=== PATIENT | female | born 1955 ===

== ENCOUNTER 2017-05-23 19:46 | Emergency (ER) | payer OTHER ==
[2017-05-23 20:07] VITALS: O2SAT 100
[2017-05-23] MEDS ORDERED: Insulin Regular 100 units/ml IV STA (20:27)
[2017-05-23] MEDS ORDERED: Albuterol-Ipratrop 3 mg / 0.5 (3 ml) UD INH STA (20:29)
[2017-05-23] MEDS ORDERED: Sodium Chloride 0.9% 1,000 ML IV SCH (20:30)
--- NOTE | 2017-05-23 20:41 | ED PDOC ---
Hyperglycemia/Hypoglycemia Time Seen by Provider: 05/23/17 20:14 Chief Complaint (Nursing): High Blood Sugar Chief Complaint (Provider): High blood sugar History Per: Patient History/Exam Limitations: no limitations Onset/Duration Of Symptoms: Days (1) Associated Infectious Symptoms: Cough : The patient does not have any of the infectious symptoms listed except for those marked. Additional Complaint(s): Patient is a 62 y/o female with a past medical history of non-insulin dependent diabetes presenting to the emergency department for fatigue that started this morning with associated polyuria and polydipsia ongoing for one week. Reports not feeling well this morning and notes that when she came home after returning from work, she had difficulty going upstairs to her fourth floor apartment. Also reports that her blood sugar level is 390 mg/dL, taken at home. Also complains of chest pain, chills, and a dry cough for the last three months. Denies fever or other complaints. PCP: Dr. Jayne Davis Past Medical History Reviewed: Historical Data, Nursing Documentation, Vital Signs Vital Signs: Last Vital Signs Temp 97.2 F L 05/23/17 20:03 Pulse 67 05/23/17 20:03 Resp 16 05/23/17 20:03 BP 193/79 H 05/23/17 20:03 Pulse Ox 100 05/23/17 20:03 - Medical History PMH: Diabetes - Family History Family History: States: Unknown Family Hx - Home Medications Home Medications: Ambulatory Orders Medication Instructions Recorded Albuterol HFA [Ventolin HFA 90 2 puff IH [id number] #1 inhaler 05/23/17 mcg/actuation (8 g)] Cyclobenzaprine [Cyclobenzaprine 10 mg PO BID #15 tab 05/23/17 HCl] predniSONE [predniSONE Tab] 20 mg PO DAILY 3 Days 05/23/17 - Allergies Allergies/Adverse Reactions: Allergies Allergy/AdvReac Type Severity Reaction Status Date / Time aspirin Allergy RASH Verified 05/23/17 20:03 Review of Systems ROS Statement: Except As Marked, All Systems Reviewed And Found Negative Constitutional: Positive for: Chills, Other (fatigue, polydipsia). Negative for : Fever Cardiovascular: Positive for: Chest Pain Respiratory: Positive for: Cough (dry) Genitourinary Female: Positive for: Other (polyuria) Physical Exam - Reviewed Nursing Documentation Reviewed: Yes Vital Signs Reviewed: Yes - Physical Exam Appears: Positive for: Non-toxic, No Acute Distress (Tired with active cough) Head Exam: Positive for: ATRAUMATIC, NORMAL INSPECTION, NORMOCEPHALIC Skin: Positive for: Normal Color, Warm, Dry Eye Exam: Positive for: Normal appearance Neck: Positive for: Normal, Painless ROM, Supple Cardiovascular/Chest: Positive for: Regular Rate, Rhythm. Negative for: Murmur Respiratory: Positive for: Normal Breath Sounds. Negative for: Accessory Muscle Use, Respiratory Distress Gastrointestinal/Abdominal: Positive for: Normal Exam, Soft. Negative for: Tenderness Extremity: Positive for: Normal ROM. Negative for: Pedal Edema Neurologic/Psych: Positive for: Alert, Oriented (x3) - Laboratory Results Result Diagrams: 05/23/17 21:05 05/23/17 21:05 - ECG O2 Sat by Pulse Oximetry: 100 (RA) Pulse Ox Interpretation: Normal Medical Decision Making Medical Decision Making: Time: 20:06 Initial impression: Hyperglycemia. Rule out diabetic ketoacidosis. Initial plan: Labs EKG Chest X-ray Duoneb 3 ml INH HumuLIN 10 units INH Toradol 15 mg IVP Normal Saline 1 L IV Public Works Commissioner continued Peak flow assessment Urinalysis Reevaluation 22:20 Upon provider evaluation patient is feeling better, is medically stable, and requires no further treatment in the ED at this time. Patient will be discharged with Rx for Ventolin, Cyclobenzaprine, and Prednisone. Counseling was provided and all questions were answered regarding diagnosis and need for follow up with PCP. There is agreement to discharge plan. Return if symptoms persist or worsen. Scribe Attestation: Documented by Rafaela Burgess, acting as a scribe for Toño Hodges MD. Provider Scribe Attestation: All medical record entries made by the Scribe were at my direction and personally dictated by me. I have reviewed the chart and agree that the record accurately reflects my personal performance of the history, physical exam, medical decision making, and the department course for this patient. I have also personally directed, reviewed, and agree with the discharge instructions and disposition. Disposition - Clinical Impression Clinical Impression: Hyperglycemia - Patient ED Disposition Is Patient to be Admitted: No Counseled Patient/Family Regarding: Diagnosis, Rx Given - Disposition Referrals: Jayne Francisco MD [Medical Doctor] - Disposition: Routine/Home Disposition Time: 22:20 Condition: IMPROVED Prescriptions: Albuterol HFA [Ventolin HFA 90 mcg/actuation (8 g)] 2 puff IH [id number] #1 inhaler Cyclobenzaprine [Cyclobenzaprine HCl] 10 mg PO BID #15 tab predniSONE [predniSONE Tab] 20 mg PO DAILY 3 Days Instructions: Diabetic Hyperglycemia (ED) Forms: [employer] ([employer]), [facility] ED School/Work Excuse Print Language: URDU
[2017-05-23] MEDS ORDERED: Insulin Regular 100 units/ml ONE (20:45)
[2017-05-23] MEDS ORDERED: Albuterol-Ipratrop 3 mg / 0.5 (3 ml) UD ONE (20:45)
[2017-05-23 21:11] LABS: BASO # 0.1 K/uL (0.0-0.2); BASO % 0.5 % (0.0-2.0); EOS # 0.3 K/uL (0.0-0.7); EOS % 2.9 % (0.0-4.0); HEMATOCRIT 39.1 % (34.0-47.0); LYMPH # 3.5 K/uL (1.0-4.3); LYMPH % 30.1 % (20.0-40.0); MEAN CELL VOLUME 83.5 fl (81.0-99.0); MEAN CORPUSCULAR HGB CONC 32.3 g/dL (33.0-37.0); MEAN PLATELET VOLUME 8.6 fl (7.2-11.7); MONO # 0.6 K/uL (0.0-0.8); NEUT # 7.1 K/uL (1.8-7.0); NEUT % 61.5 % (50.0-75.0); NRBC % 0.1 % (0.0-0.0); RBC URINE 1 /hpf (0-3); RED CELL DISTRIBUTION WIDTH 14.5 % (11.5-14.5); URINE BILIRUBIN NEGATIVE (NEGATIVE); URINE BLOOD NEGATIVE (NEGATIVE); URINE COLOR STRAW (YELLOW); URINE GLUCOSE (UA) NEG (Normal); URINE KETONE NEGATIVE (NEGATIVE); URINE LEUKOCYTE ESTERASE NEG Leu/uL (Negative); URINE PROTEIN NEGATIVE (NEGATIVE); URINE UROBILINOGEN 0.2-1.0 mg/dL (0.2-1.0); WBC URINE 1 /hpf (0-5); WHITE BLOOD COUNT 11.6 K/uL (4.8-10.8)
[2017-05-23 21:15] LABS: VENOUS BLOOD GAS PCO2 48 mmHg (40-60)
[2017-05-23 21:20] LABS: BLOOD UREA NITROGEN 15 mg/dl (7-17); CALCIUM 9.8 mg/dL (8.4-10.2); CARBON DIOXIDE 27 mmol/L (22-30); CHLORIDE 97 mmol/L (98-107); GFR AFRICAN-AMERICAN > 60; GLUCOSE,RANDOM 238 mg/dL (65-105); SODIUM 136 mmol/l (132-148)
[2017-05-23 21:33] LABS: POTASSIUM 4.1 MMOL/L (3.6-5.0)
[2017-05-23 22:06] VITALS: BP 137/65; PULSE 62; RESP 15; TEMP 98
--- NOTE | 2017-05-23 22:16 | ED PDOC ---
Hyperglycemia/Hypoglycemia Chief Complaint (Nursing): High Blood Sugar : The patient does not have any of the infectious symptoms listed except for those marked. Past Medical History Vital Signs: Last Vital Signs Temp 97.2 F L 05/23/17 20:03 Pulse 67 05/23/17 20:03 Resp 16 05/23/17 20:03 BP 193/79 H 05/23/17 20:03 Pulse Ox 100 05/23/17 20:03 - Allergies Allergies/Adverse Reactions: Allergies Allergy/AdvReac Type Severity Reaction Status Date / Time aspirin Allergy RASH Verified 05/23/17 20:03 - ECG O2 Sat by Pulse Oximetry: 100 Disposition - Disposition Forms: [employer] (Korean)
--- NOTE | 2017-05-24 09:30 | RAD ---
HISTORY: Cough, chest pain. COMPARISON: 07/09/2012. TECHNIQUE: Chest PA and lateral FINDINGS: LUNGS: No active pulmonary disease. PLEURA: No significant pleural effusion identified. No pneumothorax apparent. CARDIOVASCULAR: No radiographic findings to suggest acute or significant cardiovascular disease. OSSEOUS STRUCTURES: No significant abnormalities. VISUALIZED UPPER ABDOMEN: Normal. OTHER FINDINGS: None. IMPRESSION: No active disease. No significant interval change compared to the prior examination(s).
--- NOTE | 2017-05-26 11:24 | CARD ---
APPROVED REPORT EKG Measurement Heart [id number] <Conclusion> Normal sinus rhythm Normal ECG
== END 2017-05-23 22:42 | disposition home or self-care (01) ==
LOC: H.ER 19:46
DX: E11.65 Type 2 diabetes mellitus with hyperglycemia (principal)
CPT/HCPCS: 71020; 80048; 81003; 82803; 82948; 84484; 85025; 85610; 85730; 93005; 94640; 96374; 99283; J1885; J7040

== ENCOUNTER 2018-07-03 12:32 | Inpatient (IN) | payer SELFPAY ==
[2018-07-03 14:01] LABS: BASO % 0.4 % (0.0-2.0); EOS # 0.2 K/uL (0.0-0.7); EOS % 1.8 % (0.0-4.0); HEMOGLOBIN 14.3 g/dL (12.0-16.0); LYMPH # 1.9 K/uL (1.0-4.3); LYMPH % 20.4 % (20.0-40.0); MEAN CELL VOLUME 82.9 fl (81.0-99.0); MEAN CORPUSCULAR HEMOGLOBIN 27.7 pg (27.0-31.0); MEAN CORPUSCULAR HGB CONC 33.4 g/dL (33.0-37.0); MEAN PLATELET VOLUME 8.7 fl (7.2-11.7); MONO # 0.4 K/uL (0.0-0.8); MONO % 4.7 % (0.0-10.0); NEUT # 6.8 K/uL (1.8-7.0); NEUT % 72.7 % (50.0-75.0); RBC 5.17 Mil/uL (3.80-5.20); RED CELL DISTRIBUTION WIDTH 14.8 % (11.5-14.5); WHITE BLOOD COUNT 9.3 K/uL (4.8-10.8)
[2018-07-03 14:10] LABS: INR 1.1
[2018-07-03 14:11] LABS: ALBUMIN 4.1 g/dL (3.5-5.0); ALT/SGPT 82 U/L (9-52); AST/SGOT 109 U/L (14-36); BLOOD UREA NITROGEN 13 mg/dl (7-17); CALCIUM 9.9 mg/dL (8.4-10.2); GFR NON-AFRICAN AMERICAN > 60
--- NOTE | 2018-07-03 14:44 | CT ---
Date of service: 07/03/2018 PROCEDURE: CT HEAD WITHOUT CONTRAST. HISTORY: dizziness COMPARISON: Noncontrast head CT 09/19/2013. TECHNIQUE: Axial computed tomography images were obtained through the head/brain without intravenous contrast. Radiation dose: Total exam DLP = 833.12 mGy-cm. This CT exam was performed using one or more of the following dose reduction techniques: Automated exposure control, adjustment of the mA and/or kV according to patient size, and/or use of iterative reconstruction technique. FINDINGS: HEMORRHAGE: No intracranial hemorrhage. BRAIN: Trace infrequent subcortical microangiopathy is appreciated which is not significantly changed in the interval. Normal hoang-white differentiation is preserved and the ventricular sulcal and cisternal spaces are also unremarkable. There is no mass effect. There is no suspicious extra-axial fluid collection and the midline brain anatomy appears diffusely unremarkable. VENTRICLES: Unremarkable. No hydrocephalus. CALVARIUM: Unremarkable. PARANASAL SINUSES: Unremarkable as visualized. No significant inflammatory changes. MASTOID AIR CELLS: Unremarkable as visualized. No inflammatory changes. OTHER FINDINGS: None. IMPRESSION: Stable limited age-related neuro degenerative findings as discussed above, which remain age appropriate. No interval acute findings appreciable. CT or MRI are available for follow-up if clinically warranted.
--- NOTE | 2018-07-03 14:58 | RAD ---
HISTORY: chest pain, dizziness COMPARISON: Chest x-ray performed 05/23/17 TECHNIQUE: Chest PA and lateral FINDINGS: External cardiac monitoring leads obscure evaluation of the underlying parenchyma. Examination limited by habitus. LUNGS: No focal consolidation. Please note that chest x-ray has limited sensitivity for the detection of pulmonary masses. PLEURA: No significant pleural effusion identified. No definite pneumothorax . CARDIOVASCULAR: The cardiomediastinal silhouette appears within normal limits of size. No atherosclerotic calcification present. OSSEOUS STRUCTURES: Degenerative changes of the spine. VISUALIZED UPPER ABDOMEN: Unremarkable. OTHER FINDINGS: None. IMPRESSION: No focal consolidation, significant pleural effusion, or definite pneumothorax identified.
--- NOTE | 2018-07-03 17:31 | ED PDOC ---
HPI: General Adult Time Seen by Provider: 07/03/18 13:03 Chief Complaint (Nursing): Weakness/Neurological Deficit Chief Complaint (Provider): Chest pain, dizziness History Per: Patient, Family History/Exam Limitations: no limitations Onset/Duration Of Symptoms: Days Have you had recent travel within the past 21 days to any of the following countries: [place], [place], [place] or [place]?: No Current Symptoms Are (Timing): Still Present Additional Complaint(s): 63 yo female with HTN, DM and vertigo presents for evaluation of chest pain and dizziness. PT states yesterday she had generalized weakness and feeling tired. PT states that she had mild pain yesterday in her chest and today it began a stronger pressure. Pt states [employer] she developed dizziness which she describes as spinning. Pt states she has had vertigo in the past but over a year ago. Pt states this feels worse. No N/V/D. No SOB. PT denies fever.chills. PT did not take anything at home for symptoms. NIHSS Stroke Scale - Date/Time Evaluation Performed Date Performed: 07/03/18 Time Performed: 13:05 When Was NIHSS Performed: Baseline - How Severe is the Stroke Level of Consciousness: 0=Alert LOC to Questions: 0=Both comments correct LOC to commands: 0=Obeys both correctly Best Gaze: 0=Normal Visual: 0=No visual loss Facial: 0=Normal Motor Arm - Left: 0=No drift Motor Arm - Right: 0=No drift Motor Leg - Left: 0=No drift Motor Leg - Right: 0=No drift Limb Ataxia: 0=Absent Sensory: 0=Normal Best Language: 0=No aphasia Dysarthia: 0=Normal articulation Extinction & Inattention (Neglect): 0=Normal, no object Score: 0 Severity Of Stroke: 0 = No Stroke Past Medical History Vital Signs: Last Vital Signs Temp 98.6 F 07/03/18 12:43 Pulse 67 07/03/18 16:53 Resp 19 07/03/18 16:53 BP 130/78 07/03/18 16:53 Pulse Ox 98 07/03/18 16:53 - Medical History PMH: Diabetes, HTN - Family History Family History: States: Unknown Family Hx - Home Medications Home Medications: Ambulatory Orders Medication Instructions Recorded GlipiZIDE [Glucotrol] 5 mg PO DAILY 07/03/18 Metformin HCl [Glucophage] 1,000 mg PO BID 07/03/18 hydroCHLOROthiazide [Hydrodiuril] 25 mg PO DAILY 07/03/18 - Allergies Allergies/Adverse Reactions: Allergies Allergy/AdvReac Type Severity Reaction Status Date / Time aspirin Allergy RASH Verified 07/03/18 12:43 Physical Exam - Reviewed Nursing Documentation Reviewed: Yes Vital Signs Reviewed: Yes - Physical Exam Appears: Positive for: Well, Non-toxic, No Acute Distress Head Exam: Positive for: ATRAUMATIC, NORMAL INSPECTION, NORMOCEPHALIC Skin: Positive for: Normal Color, Warm, DRY Eye Exam: Positive for: EOMI, Normal appearance, PERRL ENT: Positive for: Normal ENT Inspection Neck: Positive for: Normal, Painless ROM Cardiovascular/Chest: Positive for: Regular Rate, Rhythm Respiratory: Positive for: Normal Breath Sounds. Negative for: Accessory Muscle Use, Respiratory Distress Gastrointestinal/Abdominal: Positive for: Normal Exam, Soft. Negative for: Tenderness Back: Positive for: Normal Inspection Extremity: Positive for: Normal ROM. Negative for: Tenderness, Deformity Neurologic/Psych: Positive for: Alert, communications analyst II-XII, Oriented, Mood/Affect, Cerebellar Tests. Negative for: Motor/Sensory Deficits, Aphasia - Laboratory Results Result Diagrams: 07/03/18 13:30 07/03/18 13:30 - ECG O2 Sat by Pulse Oximetry: 98 Medical Decision Making Medical Decision Making: Labs, EKG, CXR, head CT WNL Discussed admission with Dr. Dolan for chest pain and dizziness. PT reports no improvement after aspirin and meclizine. 1800 - PT reports vomiting after being fed dinner. PT now reports posterior head pain. Neurological exam remains intact. Disposition - Clinical Impression Clinical Impression: Dizziness, Chest pain - Patient ED Disposition Is Patient to be Admitted: Yes - Disposition Disposition Time: 17:06 Condition: STABLE - Pt Status Changed To: Hospital Disposition Of: Observation - Admit Certification Admit to Inpatient:: Telemetry - POA Present On Arrival: None
[2018-07-03 18:44] LABS: SQUAMOUS EPITHIAL 1 /hpf (0-5); URINE BILIRUBIN NEGATIVE (NEGATIVE); URINE BLOOD NEGATIVE (NEGATIVE); URINE CLARITY CLEAR (Clear); URINE COLOR STRAW (YELLOW); URINE GLUCOSE (UA) NEG (Normal); URINE LEUKOCYTE ESTERASE NEG Leu/uL (Negative); URINE PROTEIN 30 mg/dL (NEGATIVE); URINE UROBILINOGEN 0.2-1.0 mg/dL (0.2-1.0)
[2018-07-03] MEDS: Insulin Lispro (humaLOG) 100 Units/ml Inj SC SCH (22:45)
[2018-07-04] MEDS ORDERED: Influenza Vaccine (5 YR UP)/PF 60 MCG/0.5 ML SYR IM ONE (06:00)
[2018-07-04] MEDS: Insulin Lispro (humaLOG) 100 Units/ml Inj SC SCH ×4 (06:30→22:40)
[2018-07-04 07:36] LABS: HEMOGLOBIN 13.9 g/dL (12.0-16.0); MEAN CELL VOLUME 83.3 fl (81.0-99.0); MEAN CORPUSCULAR HEMOGLOBIN 27.5 pg (27.0-31.0); RBC 5.06 Mil/uL (3.80-5.20); RED CELL DISTRIBUTION WIDTH 14.7 % (11.5-14.5); WHITE BLOOD COUNT 10.8 K/uL (4.8-10.8)
[2018-07-04 07:56] LABS: LDL CHOLESTEROL 68 mg/dL (0-129)
[2018-07-04 08:18] LABS: ALB/GLOB RATIO 0.6 (1.0-2.1); ALBUMIN 2.5 g/dL (3.5-5.0); ALT/SGPT 54 U/L (9-52); AST/SGOT 110 U/L (14-36); BLOOD UREA NITROGEN 12 mg/dl (7-17); CALCIUM 7.9 mg/dL (8.4-10.2); GFR NON-AFRICAN AMERICAN > 60; HDL CHOLESTEROL 41 MG/DL (30-70)
[2018-07-04] MEDS: Enoxaparin 40 mg Syringe SC SCH (08:49)
--- NOTE | 2018-07-04 11:57 | CARD ---
APPROVED REPORT Date of service: 07/03/2018 EKG Measurement Heart [id number] [place] [id number] <Conclusion> Normal sinus rhythm Possible Inferior infarct, age undetermined Abnormal ECG
--- NOTE | 2018-07-04 12:36 | CARD ---
APPROVED REPORT Date of service: 07/03/2018 EKG Measurement Heart [id number] [place] [id number] [id number] <Conclusion> Sinus bradycardia Otherwise normal ECG
[2018-07-05] MEDS: Insulin Lispro (humaLOG) 100 Units/ml Inj SC SCH ×4 (07:31→22:11)
[2018-07-05] MEDS: Enoxaparin 40 mg Syringe SC SCH (09:06)
--- NOTE | 2018-07-05 11:55 | CP.PCM.HP ---
Past Patient History - Past Medical History & Family History Past Medical History?: Yes - Past Social History Smoking Status: Former Smoker - CARDIAC Hx Cardiac Disorders: Yes Hx Hypertension: Yes - PULMONARY Hx Respiratory Disorders: No - NEUROLOGICAL Hx Neurological Disorder: No - HEENT Hx HEENT Problems: No - RENAL Hx Chronic Kidney Disease: No - ENDOCRINE/METABOLIC Hx Endocrine Disorders: Yes Hx Diabetes Mellitus Type 2: Yes - HEMATOLOGICAL/ONCOLOGICAL Hx Blood Disorders: No - INTEGUMENTARY Hx Dermatological Problems: No - MUSCULOSKELETAL/RHEUMATOLOGICAL Hx Musculoskeletal Disorders: No Hx Falls: Yes - GASTROINTESTINAL Hx Gastrointestinal Disorders: No - GENITOURINARY/GYNECOLOGICAL Hx Genitourinary Disorders: No - PSYCHIATRIC Hx Psychophysiologic Disorder: No Hx Substance Use: No - SURGICAL HISTORY Hx Surgeries: Yes - ANESTHESIA Hx Anesthesia: Yes Hx Anesthesia Reactions: Yes Hx Malignant Hyperthermia: No Has any member of the family had a problem w/ anesthesia?: No Meds Allergies/Adverse Reactions: Allergies Allergy/AdvReac Type Severity Reaction Status Date / Time aspirin Allergy RASH Verified 07/03/18 12:43 Results - Vital Signs Recent Vital Signs: Last Vital Signs Temp 97.9 F 07/05/18 08:18 Pulse 83 07/05/18 09:00 Resp 18 07/05/18 08:18 BP 145/83 07/05/18 08:18 Pulse Ox 97 07/05/18 08:18 - Labs Result Diagrams: 07/04/18 06:00 07/04/18 06:00 Labs: Laboratory Results - last 24 hr 07/04/18 07/04/18 07/04/18 06:00 06:00 17:12 POC Glucose (mg/dL) 161 H Hemoglobin A1c 9.4 H 25-OH Vitamin D Total 26.0 L
--- NOTE | 2018-07-05 11:56 | CP.PCM.PN ---
Subjective - Date & Time of Evaluation Date of Evaluation: 07/05/18 Time of Evaluation: 11:10 Objective - Vital Signs/Intake and Output Vital Signs (last 24 hours): Temp Pulse Resp BP Pulse Ox 97.9 F 83 18 145/83 97 07/05/18 08:18 07/05/18 09:00 07/05/18 08:18 07/05/18 08:18 07/05/18 08:18 - Medications Medications: Current Medications Enoxaparin Sodium (Lovenox) 40 mg SC DAILY [facility]; Protocol Last Admin: 07/05/18 09:06 Dose: 40 mg Glipizide (Glucotrol) 5 mg PO DAILY [facility] Last Admin: 07/05/18 09:05 Dose: 5 mg Insulin Human Lispro (Humalog) 0 units SC Q6 [facility]; Protocol Last Admin: 07/05/18 07:31 Dose: 1 units Meclizine HCl (Antivert) 25 mg PO Q6 PRN PRN Reason: Dizziness Last Admin: 07/04/18 12:43 Dose: 25 mg Metformin HCl (Glucophage) 1,000 mg PO BID [facility] Last Admin: 07/05/18 09:05 Dose: 1,000 mg Tramadol HCl (Ultram) 50 mg PO Q6 PRN PRN Reason: Pain, moderate (4-7) - Labs Labs: 07/04/18 06:00 07/04/18 06:00 PT 12.0 Seconds (9.8-13.1) 07/03/18 13:30 INR 1.1 07/03/18 13:30 APTT 31.0 Seconds (25.6-37.1) 07/03/18 13:30
[2018-07-05 12:29] LABS: BASO % 0.3 % (0.0-2.0); EOS # 0.3 K/uL (0.0-0.7); EOS % 3.1 % (0.0-4.0); HEMOGLOBIN 13.8 g/dL (12.0-16.0); LYMPH # 2.9 K/uL (1.0-4.3); MEAN CELL VOLUME 83.7 fl (81.0-99.0); MEAN CORPUSCULAR HEMOGLOBIN 27.5 pg (27.0-31.0); MEAN CORPUSCULAR HGB CONC 32.8 g/dL (33.0-37.0); MEAN PLATELET VOLUME 8.4 fl (7.2-11.7); MONO # 0.5 K/uL (0.0-0.8); MONO % 4.9 % (0.0-10.0); NEUT # 7.3 K/uL (1.8-7.0); NEUT % 65.7 % (50.0-75.0); RBC 5.03 Mil/uL (3.80-5.20); RED CELL DISTRIBUTION WIDTH 14.8 % (11.5-14.5); WHITE BLOOD COUNT 11.2 K/uL (4.8-10.8)
[2018-07-05 13:12] LABS: BLOOD UREA NITROGEN 20 mg/dl (7-17); CALCIUM 9.5 mg/dL (8.4-10.2); GFR NON-AFRICAN AMERICAN > 60
[2018-07-05] MEDS: Cholecalciferol 1,000 INTLU TAB PO SCH (14:24)
--- NOTE | 2018-07-05 14:29 | US ---
Date of service: 07/05/2018 PROCEDURE: Duplex ultrasound of the carotid and vertebral arteries. HISTORY: SHETH and Vertigo R/O CVA COMPARISON: None available. TECHNIQUE: Grayscale and duplex Doppler evaluation of the cervical carotid and vertebral arteries were performed. The common carotid, carotid bifurcations and cervical ICA and proximal ECA were evaluated. The vertebral arteries were evaluated for gross patency and direction. FINDINGS: RIGHT CAROTID ARTERIES: Common Carotid Artery: Maximal flow velocity of 64.8 cm/s. Carotid Bifurcation: Intimal thickening is present Internal Carotid Artery:Heterogeneous plaque formation. Maximal flow velocity of 74.3 cm/s. External Carotid Artery (proximal branches): Maximal flow velocity of 59.0 cm/s. ICA/CCA Ratio: 1.2 LEFT CAROTID ARTERIES: Common Carotid Artery: Maximal flow velocity of 100.4 cm/s. Carotid Bifurcation: Heterogeneous plaque formation. Internal Carotid Artery:Heterogeneous plaque formation. Maximal flow velocity of 77.5 cm/s. External Carotid Artery (proximal branches): Maximal flow velocity of 87.9 cm/s. ICA/CCA Ratio: 1.1 VERTEBRAL ARTERIES: Right Vertebral Artery: Patent. Antegrade flow. Left Vertebral Artery: Patent. Antegrade flow. OTHER FINDINGS: No atherosclerotic calcification present. IMPRESSION: Right ICA degree of stenosis: Less than 50% Left ICA degree of stenosis: Less than 50% Reference Internal Carotid Artery (ICA) Peak Systolic Velocity (PSV) for above: 1. Less than 50% stenosis less than 125 cm/s peak systolic velocity 2. 50-69% stenosis 125-230cm/s peak systolic velocity 3. Greater than 70% but less than near occlusion greater than 230 cm/s peak systolic velocity
--- NOTE | 2018-07-05 17:55 | CP.PCM.CON ---
History of Present Illness - History of Present Illness History of Present Illness: PT C/O VERTIGO SYMPTOMS FOR SEVERAL DAYS. UPON ADMISSION SHE EXPERIENCED 1 EPISODE OF CHEST TIGHTNESS WHICH RESOLVED ON OWN. NO ASSOCIATED DYSPNEA, ORTHO PND OR EDEMA. PT HAS NO KNOW CARDIAC HX. PT CONTINUES TO HAVE VERTIGO WITH N/ V. NO PRIOR EPISODES OF CHEST DISCOMFORT Review of Systems - Constitutional Constitutional: As Per HPI. absent: Anorexia, Chills, Daytime Sleepiness, Excessive Sweating, Fatigue, Fever, Frequent Falls, Headache, Increased Appetite, Lethargy, Malaise, Night Sweats, Snoring, Sleep Apnea, Weight Gain, Weight Loss, Weakness, Other - EENT Eyes: As Per HPI. absent: Blind Spots, Blurred Vision, Change in Vision, Decreased Night Vision, Diplopia, Discharge, Dry Eye, Exophthalmos, Floaters, Irritation, Itchy Eyes, Loss of Peripheral Vision, Pain, Photophobia, Requires Corrective Lenses, Sees Flashes, Spots in Vision, Tunnel Vision, Other Visual Disturbances, Loss of Vision, Other Ears: As Per HPI. absent: Decreased Hearing, Ear Discharge, Ear Pain, Tinnitus, Abnormal Hearing, Disequilibrium, Dizziness, Other Nose/Mouth/Throat: As Per HPI. absent: Epistaxis, Nasal Congestion, Nasal Discharge, Nasal Obstruction, Nasal Trauma, Nose Pain, Post Nasal Drip, Sinus Pain, Sinus Pressure, Bleeding Gums, Change in Voice, Dental Pain, Dry Mouth, Dysphagia, Halitosis, Hoarsness, Lip Swelling, Mouth Lesions, Mouth Pain, Odynophagia, Sore Throat, Throat Swelling, Tongue Swelling, Facial Pain, Neck Pain, Neck Mass, Other - Breasts Breasts: As Per HPI. absent: Change in Shape, Mass, Pain, Nipple Discharge, Nipple Inversion, Skin Changes, Swelling, Other - Cardiovascular Cardiovascular: As Per HPI, Chest Pain. absent: Acrocyanosis, Chest Pain at Rest, Chest Pain with Activity, Claudication, Diaphoresis, Dyspnea, Dyspnea on Exertion, Edema, Irregular Heart Rhythm, Pain Radiating to Arm/Neck/Jaw, Leg Edema, Leg Ulcers, Lightheadedness, Orthopnea, Palpitations, Paroxysmal Nocturnal Dyspnea, Pedal Edema, Radiating Pain, Rapid Heart Rate, Slow Heart Rate, Syncope, Other - Respiratory Respiratory: As Per HPI. absent: Cough, Dyspnea, Hemoptysis, Dyspnea on Exertion, Wheezing, Snoring, Stridor, Pain on Inspiration, Chest Congestion, Excessive Mucous Production, Change in Mucous Color, Pain with Coughing, Other - Gastrointestinal Gastrointestinal: As Per HPI. absent: Abdominal Pain, Belching, Bloating, Change in Bowel Habits, Change in Stool Character, Coffee Ground Emesis, Con stipation, Cramping, Diarrhea, Dyspepsia, Dysphagia, Early Satiety, Excessive Flatus, Fecal Incontinence, Heartburn, Hematemesis, Hematochezia, Loose Stools, Melena, Nausea, Odynophagia, Temesmus, Vomiting, Other - Genitourinary Genitourinary: As Per HPI. absent: Change in Urinary Stream, Difficulty Urinating, Dysuria, Flank Pain, Hematuria, Pyuria, Nocturia, Urinary Incontinence, Urinary Frequency, Urinary Hesitance, Urinary Urgency, Voiding Freq/Small Amts, Freq UTI, Hx Renal/Bladder Calculi, Hx /Renal Surgery, Bladder Distension, Other - Reproductive: Female Reproductive:Female: As Per HPI. absent: Amenorrhea, Amenorrhea/ Control, Currently Menstual, Cycle <21 Days, Cycle >35 Days, Cycle Variable, Menses 1-7 Days, Menses >/= 8 Days, Menses Variable, Cycle > 4 Weeks Between, No Menses for 6 Months, Heavy Menses, Light Menses, Normal Menses, Spotting Between Cycles, S/P Hysterectomy, Menopausal, Post Menopausal, Premenarche, Abnormal Vaginal Bleeding, Dysmenorrhea, Dyspareunia, Genital Lesions, Genital Pruritis, Pelvic Pain, Prolapse Symptoms, Sexual Dysfunction, Vaginal Discharge, Vaginal Dryness, Vaginal Odor, Vaginal Pruritis, Other - Menstruation Menstruation: As Per HPI. absent: Amenorrhea, Amenorrhea/ Control, Currently Menstual, Cycle <21 Days, Cycle >35 Days, Cycle Variable, Menses 1-7 Days, Menses >/= 8 Days, Menses Variable, Cycle > 4 Weeks Between, No Menses for 6 Months, Heavy Menses, Light Menses, Normal Menses, Spotting Between Cycles, S/P Hysterectomy, Menopausal, Post Menopausal, Premenarche, Abnormal Vaginal Bleeding, Dysmenorrhea, Other - Musculoskeletal Musculoskeletal: As Per HPI. absent: Abnormal Gait, Arthralgias, Atrophy, Back Pain, Deformity, Joint Swelling, Limited Range of Motion, Loss of Height, Muscle Cramps, Muscle Weakness, Myalgias, Neck Pain, Numbness, Radiating Pain into Limb, Stiffness, Tingling, Other - Integumentary Integumentary: As Per HPI. absent: Acne, Alopecia, Bleeding Lesions, Change in Hair, Change in Nails, Change in Pigmentation, Changing Lesions, Dry Skin, Erythema, Furuncle, Hirsutism, Lesions, New Lesions, Non-Healing Lesions, Photosensitivity, Pruritus, Rash, Skin Pain, Skin Ulcer, Sores, Striae, Swe lling, Unusual Bruising, Wounds, Jaundice, Other - Neurological Neurological: As Per HPI. absent: Abnormal Gait, Abnormal Hearing, Abnormal Movements, Abnormal Speech, Behavioral Changes, Burning Sensations, Confusion, Convulsions, Disequilibrium, Dizziness, Numbness, Focal Weakness, Frequent Falls, Headaches, Lack of Coordination, Loss of Vision, Memory Loss, Paresthesias, Radicular Pain, Restless Legs, Sensory Deficit, Syncope, Tingling, Tremor, Vertigo, Weakness, Other Visual Disturbances, Other - Psychiatric Psychiatric: As Per HPI. absent: Abnormal Sleep Pattern, Anhedonia, Anxiety, Auditory Hallucinations, Behavioral Changes, Change in Appetite, Change in Libido, Confusion, Depression, Difficulty Concentrating, Hallucinations, Homicidal Ideation, Hopelessness, Irritability, Memory Loss, Mood Swings, Panic Attacks, Paranoia, Suicidal Ideation, Visual Hallucinations, Tactile Hallucinations, Other - Endocrine Endocrine: As Per HPI. absent: Change in Body Appearance, Change in Libido, Cold Intolorance, Deepening of Voice, Excessive Sweating, Fatigue, Flushing, H eat Intolorance, Increase in Ring/Shoe/Hat Size, Palpitations, Polydipsia, Polyphagia, Polyuria, Other - Hematologic/Lymphatic Hematologic: As Per HPI. absent: Easy Bleeding, Easy Bruising, Lymphadenopathy, Other Past Patient History - Past Medical History & Family History Past Medical History?: Yes - Past Social History Smoking Status: Former Smoker Chewing Tobacco Use: No Cigar Use: No Alcohol: None Drugs: Denies Home Situation {Lives}: With Family - CARDIAC Hx Cardiac Disorders: Yes Hx Hypertension: Yes - PULMONARY Hx Respiratory Disorders: No - NEUROLOGICAL Hx Neurological Disorder: No - HEENT Hx HEENT Problems: No - RENAL Hx Chronic Kidney Disease: No - ENDOCRINE/METABOLIC Hx Endocrine Disorders: Yes Hx Diabetes Mellitus Type 2: Yes - HEMATOLOGICAL/ONCOLOGICAL Hx Blood Disorders: No - INTEGUMENTARY Hx Dermatological Problems: No - MUSCULOSKELETAL/RHEUMATOLOGICAL Hx Musculoskeletal Disorders: No Hx Falls: Yes - GASTROINTESTINAL Hx Gastrointestinal Disorders: No - GENITOURINARY/GYNECOLOGICAL Hx Genitourinary Disorders: No - PSYCHIATRIC Hx Psychophysiologic Disorder: No Hx Substance Use: No - SURGICAL HISTORY Hx Surgeries: Yes - ANESTHESIA Hx Anesthesia: Yes Hx Anesthesia Reactions: Yes Hx Malignant Hyperthermia: No Has any member of the family had a problem w/ anesthesia?: No Meds Allergies/Adverse Reactions: Allergies Allergy/AdvReac Type Severity Reaction Status Date / Time aspirin Allergy RASH Verified 07/03/18 12:43 - Medications Medications: Current Medications Cholecalciferol (Vitamin D) 2,000 intlu PO DAILY [facility] Last Admin: 07/05/18 14:24 Dose: 2,000 intlu Enoxaparin Sodium (Lovenox) 40 mg SC DAILY [facility]; Protocol Last Admin: 07/05/18 09:06 Dose: 40 mg Glipizide (Glucotrol) 5 mg PO DAILY [facility] Last Admin: 07/05/18 09:05 Dose: 5 mg Insulin Human Lispro (Humalog) 0 units SC Q6 [facility]; Protocol Last Admin: 07/05/18 17:48 Dose: Not Given Meclizine HCl (Antivert) 25 mg PO Q6 PRN PRN Reason: Dizziness Last Admin: 07/04/18 12:43 Dose: 25 mg Metformin HCl (Glucophage) 1,000 mg PO BID [facility] Last Admin: 07/05/18 17:48 Dose: 1,000 mg Tramadol HCl (Ultram) 50 mg PO Q6 PRN PRN Reason: Pain, moderate (4-7) Physical Exam - Constitutional Appears: Non-toxic - Head Exam Head Exam: ATRAUMATIC, NORMAL INSPECTION, NORMOCEPHALIC - Eye Exam Eye Exam: EOMI, Normal appearance, PERRL. absent: Conjunctival injection, Nystagmus, Periorbital swelling, Periorbital tenderness, Scleral icterus Pupil Exam: NORMAL ACCOMODATION, PERRL. absent: Fixed, Irregular, Miosis, Mydriatic, Unequal - ENT Exam ENT Exam: Mucous Membranes Moist, Normal Exam. absent: Mucous Membranes Dry, Normal External Ear Exam, Normal Oropharynx, TM's Normal Bilaterally - Neck Exam Neck exam: Positive for: Normal Inspection. Negative for: Full Rom, Lympha denopathy, Meningismus, Tenderness, Thyromegaly - Respiratory Exam Respiratory Exam: Clear to Auscultation Bilateral, NORMAL BREATHING PATTERN. absent: Accessory Muscle Use, Chest Wall Tenderness, Decreased Breath Sounds, Prolonged Expiratory Phase, Rales, Rhonchi, Wheezes, Respiratory Distress, Stridor - Cardiovascular Exam Cardiovascular Exam: REGULAR RHYTHM. absent: Bradycardia, Tachycardia, Clicks, Diastolic murmur, Gallop, Irregular Rhythm, JVD, RRR, Rubs, +S1, +S2, +S4, Systolic Murmur - GI/Abdominal Exam GI & Abdominal Exam: Normal Bowel Sounds, Soft. absent: Bruit, Diminished Bowel Sounds, Distended, Firm, Guarding, Hernia, Hyperactive Bowel Sounds, Hypoactive Bowel Sounds, Mass, Organomegaly, Pulsatile Mass, Rebound, Rigid, Tenderness - Rectal Exam Rectal Exam: Deferred - Extremities Exam Extremities exam: Positive for: normal inspection. Negative for: calf tenderness, full ROM, joint swelling, normal capillary refill, pedal edema, tenderness, pedal pulses present - Back Exam Back exam: NORMAL INSPECTION. absent: CVA tenderness (L), CVA tenderness (R), FULL ROM, muscle spasm, paraspinal tenderness, rash noted, tenderness, vertebral tenderness - Neurological Exam Neurological exam: Alert, CN II-XII Intact, Normal Gait, Oriented x3, Reflexes Normal - Psychiatric Exam Psychiatric exam: Normal Affect, Normal Mood - Skin Skin Exam: Dry, Intact, Normal Color, Warm Results - Vital Signs Recent Vital Signs: Last Vital Signs Temp 98.1 F 07/05/18 16:41 Pulse 80 07/05/18 16:41 Resp 16 07/05/18 16:41 BP 127/81 07/05/18 16:41 Pulse Ox 96 07/05/18 16:41 - Labs Result Diagrams: 07/05/18 12:20 07/05/18 12:20 Labs: Laboratory Results - last 24 hr 07/04/18 07/05/18 07/05/18 06:00 12:20 12:20 WBC 11.2 H RBC 5.03 Hgb 13.8 Hct 42.1 MCV 83.7 MCH 27.5 MCHC 32.8 L RDW 14.8 H Plt Count 192 MPV 8.4 Neut % (Auto) 65.7 Lymph % (Auto) 26.0 [place] % (Auto) 4.9 Eos % (Auto) 3.1 Baso % (Auto) 0.3 Neut # (Auto) 7.3 H Lymph # (Auto) 2.9 [place] # (Auto) 0.5 Eos # (Auto) 0.3 Baso # (Auto) 0.0 Sodium 138 Potassium 4.2 Chloride 101 Carbon Dioxide 30 Anion Gap 11 BUN 20 H Creatinine 0.7 Est GFR ( Amer) > 60 Est GFR (Non-Af Amer) > 60 Random Glucose 214 H Hemoglobin A1c 9.4 H Calcium 9.5 Troponin I < 0.0120 Assessment & Plan (1) Diabetes Status: Acute (2) Chest pain Status: Acute (3) Dizziness Status: Acute - Assessment and Plan (Free Text) Plan: WOULD START ASA 81MG DAILY PT HAS A FAM HX OF ICH. GIVEN PTS VERTIGO WOULD NOT DO NUC STRESS. CAN BE DONE AFTER PTS VERTIGO RESOLVED. ECHO AND MRI PEND ING. BP CONTROLLED
[2018-07-06] MEDS: Insulin Lispro (humaLOG) 100 Units/ml Inj SC SCH ×3 (06:23→16:21)
[2018-07-06 08:03] LABS: HEPATITIS B SURFACE AG Negative (NEGATIVE)
[2018-07-06 08:09] LABS: HEPATITIS A IGM NEGATIVE (NEGATIVE); HEPATITIS B CORE AB NEGATIVE (NEGATIVE)
[2018-07-06 08:20] LABS: HEPATITIS C ANTIBODY NEGATIVE (NEGATIVE)
[2018-07-06] MEDS: Cholecalciferol 1,000 INTLU TAB PO SCH (09:25)
[2018-07-06] MEDS: Enoxaparin 40 mg Syringe SC SCH (09:26)
[2018-07-06] MEDS ORDERED: Gadodiamide 287 MG/ML VIAL (15ML) IV ONE (09:39)
--- NOTE | 2018-07-06 12:44 | MRI ---
Date of service: 07/06/2018 PROCEDURE: MRI BRAIN WITH AND WITHOUT CONTRAST HISTORY: Chest Pain, SHETH, and Dizziness R/O CVA COMPARISON: Head CT without contrast TECHNIQUE: Multiplanar, multisequence MR images of the brain were obtained with and without intravenous contrast enhancement. FINDINGS: HEMORRHAGE: None DWI: No evidence of an acute or early subacute infarction. BRAIN PARENCHYMA: The ventricular sulcal sternal spaces appear within normal limits above and below the tentorium as well as corticomedullary differentiation. There is no mass effect. Scattered occasional long TR hyperintensities are identified at bilateral frontal and parietal subcortical white matter as well as the periventricular white matter, and very mildly in the bilateral centrum semiovale white-matter region compatible with chronic microangiopathy. No suspicious extra-axial collection identified. ENHANCEMENT: No abnormal intracranial enhancement. No enhancing mass above or below the tentorium. VENTRICLES: Unremarkable. No hydrocephalus. CRANIUM: Unremarkable. ORBITS: Grossly unremarkable. PARANASAL SINUSES/MASTOIDS: Clear VASCULAR SYSTEM: Skull base flow voids intact. OTHER FINDINGS: None . IMPRESSION: Stable limited chronic microangiopathy which appears age appropriate. There is no mass effect or abnormal intracranial hemorrhage identified. No evidence of acute or subacute brain infarction or definite intracranial hemorrhage.
--- NOTE | 2018-07-06 13:20 | CP.PCM.CON ---
History of Present Illness - History of Present Illness History of Present Illness: 63 yr old woman who is here for vertigo. 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 I feel that she will benefit from strict physical therapy. MRI MRa are normal per my read. PLease see full dictated consult for more details. Thank you Dr pina Past Patient History - Past Medical History & Family History Past Medical History?: Yes - Past Social History Smoking Status: Former Smoker Chewing Tobacco Use: No Cigar Use: No Alcohol: None Drugs: Denies Home Situation {Lives}: With Family - CARDIAC Hx Cardiac Disorders: Yes Hx Hypertension: Yes - PULMONARY Hx Respiratory Disorders: No - NEUROLOGICAL Hx Neurological Disorder: No - HEENT Hx HEENT Problems: No - RENAL Hx Chronic Kidney Disease: No - ENDOCRINE/METABOLIC Hx Endocrine Disorders: Yes Hx Diabetes Mellitus Type 2: Yes - HEMATOLOGICAL/ONCOLOGICAL Hx Blood Disorders: No - INTEGUMENTARY Hx Dermatological Problems: No - MUSCULOSKELETAL/RHEUMATOLOGICAL Hx Musculoskeletal Disorders: No Hx Falls: Yes - GASTROINTESTINAL Hx Gastrointestinal Disorders: No - GENITOURINARY/GYNECOLOGICAL Hx Genitourinary Disorders: No - PSYCHIATRIC Hx Psychophysiologic Disorder: No Hx Substance Use: No - SURGICAL HISTORY Hx Surgeries: Yes - ANESTHESIA Hx Anesthesia: Yes Hx Anesthesia Reactions: Yes Hx Malignant Hyperthermia: No Has any member of the family had a problem w/ anesthesia?: No Meds Allergies/Adverse Reactions: Allergies Allergy/AdvReac Type Severity Reaction Status Date / Time aspirin Allergy RASH Verified 07/03/18 12:43 - Medications Medications: Current Medications Cholecalciferol (Vitamin D) 2,000 intlu PO DAILY [facility] Last Admin: 07/06/18 09:25 Dose: 2,000 intlu Enoxaparin Sodium (Lovenox) 40 mg SC DAILY [facility]; Protocol Last Admin: 07/06/18 09:26 Dose: 40 mg Glipizide (Glucotrol) 5 mg PO DAILY [facility] Last Admin: 07/06/18 09:25 Dose: 5 mg Insulin Human Lispro (Humalog) 0 units SC Q6 [facility]; Protocol Last Admin: 07/06/18 12:31 Dose: 3 units Meclizine HCl (Antivert) 25 mg PO Q6 PRN PRN Reason: Dizziness Last Admin: 07/04/18 12:43 Dose: 25 mg Metformin HCl (Glucophage) 1,000 mg PO BID [facility] Last Admin: 07/06/18 12:32 Dose: Not Given Tramadol HCl (Ultram) 50 mg PO Q6 PRN PRN Reason: Pain, moderate (4-7) Results - Vital Signs Recent Vital Signs: Last Vital Signs Temp 98.1 F 07/06/18 12:00 Pulse 76 07/06/18 12:00 Resp 18 07/06/18 12:00 BP 125/73 07/06/18 12:00 Pulse Ox 96 07/06/18 12:00 - Labs Result Diagrams: 07/05/18 12:20 07/05/18 12:20 Labs: Laboratory Results - last 24 hr 07/04/18 07/05/18 07/05/18 22:13 06:20 11:18 POC Glucose (mg/dL) 214 H 170 H 248 H Hepatitis A IgM Ab Hep Bs Antigen Hep B Core IgM Ab Hepatitis C Antibody 07/05/18 07/05/18 07/05/18 12:20 16:22 21:54 POC Glucose (mg/dL) 95 129 H Hepatitis A IgM Ab Negative Hep Bs Antigen Negative Hep B Core IgM Ab Negative Hepatitis C Antibody Negative 07/06/18 07/06/18 05:18 11:23 POC Glucose (mg/dL) 186 H 266 H Hepatitis A IgM Ab Hep Bs Antigen Hep B Core IgM Ab Hepatitis C Antibody
--- NOTE | 2018-07-06 14:24 | MRI ---
Date of service: 07/06/2018 PROCEDURE: MR Angiography of the neck without contrast HISTORY: dizziness COMPARISON: None available. TECHNIQUE: 3D [id number] angiography of the neck was performed. Rotating maximum intensity projection images of the cervical carotid and vertebral arteries were generated. The origins of the common carotid arteries were not visualized, which is a limitation inherent to the non-contrast time of flight technique. FINDINGS: RIGHT CAROTID ARTERIES: Common Carotid Artery: Normal. Carotid Bifurcation: Limited atherosclerotic plaque identified. Internal Carotid Artery:Normal. External Carotid Artery (proximal branches): Normal. LEFT CAROTID ARTERIES: Common Carotid Artery: Normal. Carotid Bifurcation: Limited atherosclerotic plaque identified. Internal Carotid Artery:Normal. External Carotid Artery (proximal branches): Normal. VERTEBRAL ARTERIES: Right Vertebral Artery: Normal. Left Vertebral Artery: Normal. OTHER FINDINGS: Left dominant vertebrobasilar circulation. Mildly hypoplastic right vertebral artery throughout. IMPRESSION: No significant stenosis in the bilateral common or internal arteries as imaged. Limited carotid bulbar plaque is identified bilaterally.
--- NOTE | 2018-07-06 14:31 | MRI ---
Date of service: 07/06/2018 PROCEDURE: Magnetic Resonance Angiography Brain HISTORY: r/o cva COMPARISON: None available. TECHNIQUE: 3D time of flight MR angiography of the intracranial arteries was performed. Rotating maximum intensity projection images were generated. FINDINGS: INTERNAL CAROTID ARTERIES: Unremarkable. The skull base, petrous, cavernous and supraclinoid segments are bilaterally widely patient. ANTERIOR CEREBRAL ARTERIES: Unremarkable. A1 and A2 segments are widely patent. Smaller distal branches unremarkable, as visualized. MIDDLE CEREBRAL ARTERIES: Unremarkable. M1 and M2 segments are widely patent. Perisylvian branches grossly symmetric. POSTERIOR CIRCULATION: Basilar Artery: Unremarkable. Distal Vertebral Arteries: There is of markedly hypoplastic distal right vertebral artery with robust flow identified throughout the distal left vertebral artery. Posterior Cerebral Arteries: Unremarkable. Posterior Inferior Cerebellar Arteries: Unremarkable. ANEURYSM/ VASCULAR MALFORMATIONS: None. OTHER FINDINGS: None. IMPRESSION: Hypoplastic distal right vertebral artery identified with the vertebrobasilar system appearing left dominant. The remainder the examination appears unremarkable. If clinically warranted, follow-up CT angiography of the brain can be performed for added characterization of the distal right vertebral artery.
--- NOTE | 2018-07-06 15:41 | CARD ---
APPROVED REPORT Date of service: 07/06/2018 EXAM: Two-dimensional and M-mode echocardiogram with Doppler and color Doppler. Other Information Quality : Average GoodRhythm : NSR Technically limited study due to body habitus. INDICATION Pericarditis 2D DIMENSIONS IVSd1.11 (0.7-1.1cm)LVDd3.76 (3.9-5.9cm) LVOT Diameter1.66 (1.8-2.4cm)PWd0.85 (0.7-1.1cm) IVSs1.19 (0.8-1.2cm)LVDs2.51 (2.5-4.0cm) FS (%) 33.2 %PWs1.15 (0.8-1.2cm) M-Mode DIMENSIONS Left Atrium (MM)3.67 (2.5-4.0cm)Aortic Root2.27 (2.2-3.7cm) Aortic Valve AoV Peak Telkirud099.5cm/sAoV VTI24.4cmAO Peak GR.7mmHg LVOT Peak Syzwnruy911.8cm/sLVOT VTI27.13cmAO Mean GR.4mmHg CELSO (VMAX)1.13ky5JTA (VTI)1.41cm2 Mitral Valve MV E Lewvalrw84.7cm/sMV DECEL [id number] A Ujnaaxfb47.0cm/s MV BZN10wgB/A ratio0.8MVA (PHT)2.47cm2 TDI Lateral E' Peak V9.70cm/sMedial E' Peak V5.54cm/sE/Lateral E'5.9 E/Medial E'10.4 LEFT VENTRICLE The left ventricle is normal size. There is normal left ventricular wall thickness. The left ventricular systolic function is normal. The estimated ejection fraction is 60-65% No regional wall motion abnormalities noted.. Transmitral Doppler flow pattern is Grade I-abnormal relaxation pattern. No left ventricle thrombus noted on this study. There is no ventricular septal defect visualized. There is no left ventricular aneurysm. There is no mass noted in the left ventricle. RIGHT VENTRICLE The right ventricle is normal size. There is normal right ventricular wall thickness. The right ventricular systolic function is normal. ATRIA The left atrium size is normal. The right atrium size is normal. The interatrial septum is intact with no evidence for an atrial septal defect. AORTIC VALVE The aortic valve is normal in structure. No aortic regurgitation is present. There is no aortic valvular stenosis. There is no aortic valvular vegetation. MITRAL VALVE The mitral valve is normal in structure. There is no evidence of mitral valve prolapse. There is no mitral valve stenosis. There is no mitral valve regurgitation noted. TRICUSPID VALVE The tricuspid valve is normal in structure. There is trace tricuspid valve regurgitation noted. There is no tricuspid valve prolapse or vegetation. There is no tricuspid valve stenosis. PULMONIC VALVE The pulmonary valve is normal in structure. There is no pulmonic valvular regurgitation. There is no pulmonic valvular stenosis. GREAT VESSELS The aortic root is normal in size. The ascending aorta is normal in size. The pulmonary artery is normal. The IVC is normal in size and collapses >50% with inspiration. PERICARDIAL EFFUSION There is no pericardial effusion. There is no pleural effusion. <Conclusion> The estimated ejection fraction is 60-65% Transmitral Doppler flow pattern is Grade I-abnormal relaxation pattern. The left atrium size is normal. There is trace tricuspid valve regurgitation noted.
[2018-07-06 15:55] VITALS: BP 124/78; PULSE 64; RESP 17; TEMP 98.9; O2SAT 98
--- NOTE | 2018-07-07 12:53 | CP.PCM.DIS ---
Provider - Provider Date of Admission: 07/05/18 12:10 Attending physician: Joe Dolan MD Time Spent in preparation of Discharge (in minutes): 25 Hospital Course - Lab Results Lab Results: Most Recent Lab Values WBC 11.2 K/uL (4.8-10.8) H 07/05/18 12:20 RBC 5.03 Mil/uL (3.80-5.20) 07/05/18 12:20 Hgb 13.8 g/dL (12.0-16.0) 07/05/18 12:20 Hct 42.1 % (34.0-47.0) 07/05/18 12:20 MCV 83.7 fl (81.0-99.0) 07/05/18 12:20 MCH 27.5 pg (27.0-31.0) 07/05/18 12:20 MCHC 32.8 g/dL (33.0-37.0) L 07/05/18 12:20 RDW 14.8 % (11.5-14.5) H 07/05/18 12:20 Plt Count 192 K/uL (130-400) 07/05/18 12:20 MPV 8.4 fl (7.2-11.7) 07/05/18 12:20 Neut % (Auto) 65.7 % (50.0-75.0) 07/05/18 12:20 Lymph % (Auto) 26.0 % (20.0-40.0) 07/05/18 12:20 [place] % (Auto) 4.9 % (0.0-10.0) 07/05/18 12:20 Eos % (Auto) 3.1 % (0.0-4.0) 07/05/18 12:20 Baso % (Auto) 0.3 % (0.0-2.0) 07/05/18 12:20 Neut # (Auto) 7.3 K/uL (1.8-7.0) H 07/05/18 12:20 Lymph # (Auto) 2.9 K/uL (1.0-4.3) 07/05/18 12:20 [place] # (Auto) 0.5 K/uL (0.0-0.8) 07/05/18 12:20 Eos # (Auto) 0.3 K/uL (0.0-0.7) 07/05/18 12:20 Baso # (Auto) 0.0 K/uL (0.0-0.2) 07/05/18 12:20 PT 12.0 Seconds (9.8-13.1) 07/03/18 13:30 INR 1.1 07/03/18 13:30 APTT 31.0 Seconds (25.6-37.1) 07/03/18 13:30 Sodium 138 mmol/l (132-148) 07/05/18 12:20 Potassium 4.2 MMOL/L (3.6-5.0) 07/05/18 12:20 Chloride 101 mmol/L (98-107) 07/05/18 12:20 Carbon Dioxide 30 mmol/L (22-30) 07/05/18 12:20 Anion Gap 11 (10-20) 07/05/18 12:20 BUN 20 mg/dl (7-17) H 07/05/18 12:20 Creatinine 0.7 mg/dl (0.7-1.2) 07/05/18 12:20 Est GFR ( Amer) > 60 07/05/18 12:20 Est GFR (Non-Af Amer) > 60 07/05/18 12:20 POC Glucose (mg/dL) 140 mg/dL (65-110) H 07/06/18 16:20 Random Glucose 214 mg/dL (65-105) H 07/05/18 12:20 Hemoglobin A1c 9.4 % (4.2-6.5) H 07/04/18 06:00 Calcium 9.5 mg/dL (8.4-10.2) 07/05/18 12:20 Total Bilirubin 2.2 mg/dl (0.2-1.3) H 07/04/18 06:00 AST 110 U/L (14-36) H 07/04/18 06:00 ALT 54 U/L (9-52) H D 07/04/18 06:00 Alkaline Phosphatase 181 U/L (38-126) H D 07/04/18 06:00 Troponin I < 0.0120 ng/mL (0.00-0.120) 07/05/18 12:20 Total Protein 6.3 G/DL (6.3-8.2) 07/04/18 06:00 Albumin 2.5 g/dL (3.5-5.0) L D 07/04/18 06:00 Globulin 3.8 gm/dL (2.2-3.9) 07/04/18 06:00 Albumin/Globulin Ratio 0.6 (1.0-2.1) L 07/04/18 06:00 Triglycerides 49 mg/DL (0-149) 07/04/18 06:00 Cholesterol 121 mg/dL (0-199) 07/04/18 06:00 LDL Cholesterol Direct 68 mg/dL (0-129) 07/04/18 06:00 HDL Cholesterol 41 MG/DL (30-70) 07/04/18 06:00 Vitamin B12 999 pg/mL (239-931) H 07/04/18 06:00 25-OH Vitamin D Total 26.0 NG/ML (30.0-100.0) L 07/04/18 06:00 TSH 3rd Generation 2.86 mIU/ML (0.46-4.68) 07/04/18 06:00 Urine Color Straw (YELLOW) 07/03/18 18:35 Urine Clarity Clear (Clear) 07/03/18 18:35 Urine pH 7.0 (5.0-8.0) 07/03/18 18:35 Ur Specific [place] 1.011 (1.003-1.030) 07/03/18 18:35 Urine Protein 30 mg/dL (NEGATIVE) 07/03/18 18:35 Urine Glucose (UA) Neg mg/dL (Normal) 07/03/18 18:35 Urine Ketones Negative mg/dL (NEGATIVE) 07/03/18 18:35 Urine Blood Negative (NEGATIVE) 07/03/18 18:35 Urine Nitrate Negative (NEGATIVE) 07/03/18 18:35 Urine Bilirubin Negative (NEGATIVE) 07/03/18 18:35 Urine Urobilinogen 0.2-1.0 mg/dL (0.2-1.0) 07/03/18 18:35 Ur Leukocyte Esterase Neg [place]/uL (Negative) 07/03/18 18:35 Urine RBC (Auto) < 1 /hpf (0-3) 07/03/18 18:35 Urine Microscopic WBC 1 /hpf (0-5) 10/19/18 18:35 Ur Squamous Epith Cells 1 /hpf (0-5) 07/03/18 18:35 Hepatitis A IgM Ab Negative (NEGATIVE) 07/05/18 12:20 Hep Bs Antigen Negative (NEGATIVE) 07/05/18 12:20 Hep B Core IgM Ab Negative (NEGATIVE) 07/05/18 12:20 Hepatitis C Antibody Negative (NEGATIVE) 07/05/18 12:20 Discharge Exam - Head Exam Head Exam: ATRAUMATIC, NORMAL INSPECTION, NORMOCEPHALIC Discharge Plan - Discharge Medications Prescriptions: Meclizine [Meclizine*] 25 mg PO Q6 PRN #30 tab PRN Reason: Dizziness Cholecalciferol [Vitamin D 1000 IU] 2,000 intlu PO DAILY #30 tab - Follow Up Plan Condition: STABLE Disposition: HOME/ ROUTINE Instructions: Chest Pain (DC), Syncope (Fainting) (DC) Additional Instructions: follow up with pmd in 1 week Referrals: Jayne Francisco MD [Family Provider] - Joe Dolan MD [Staff Provider] -
== END 2018-07-06 16:25 | disposition home or self-care (01) | DRG 74 ==
LOC: H.ER 12:32 → H.ERHOLD 17:29 → H.TEL 18:46 → OBSVTOIN 07-05 12:10
PROVIDERS: ADMIT Internal Medicine; ATTEND Internal Medicine
DX: E11.43 Type 2 diabetes mellitus with diabetic autonomic (poly)neuropathy (principal); Z79.4 Long term (current) use of insulin; I10 Essential (primary) hypertension; Z87.891 Personal history of nicotine dependence; Z79.84 Long term (current) use of oral hypoglycemic drugs; R07.9 Chest pain, unspecified; R11.2 Nausea with vomiting, unspecified; R42 Dizziness and giddiness; R51 Headache; Z23 Encounter for immunization